=== PATIENT | female | born 1995 | race Caucasian/White ===

== ENCOUNTER 2017-10-26 14:07 | Emergency (ER) | payer BC ==
[~2017-10-26] VITALS: Ht 170.2 cm; Wt 82.0 kg
[2017-10-26 14:13] VITALS: BP 139/81
[2017-10-26] MEDS ORDERED: HYDROcodone/APAP 5/325 TABLET ONE (15:14)
[2017-10-26] MEDS ORDERED: IBUPROFEN 200 MG TABLET ONE (15:15)
[2017-10-26] MEDS ORDERED: HYDROcodone/APAP 5/325 TABLET PO ONE (15:30)
[2017-10-26] MEDS ORDERED: IBUPROFEN 200 MG TABLET PO ONE (15:30)
== END 2017-10-26 16:11 | disposition home or self-care (01) ==
LOC: ED 16:00
DX: S93.421A Sprain of deltoid ligament of right ankle, initial encounter (principal); S93.611A Sprain of tarsal ligament of right foot, initial encounter; S93.621A Sprain of tarsometatarsal ligament of right foot, initial encounter; X50.1XXA Overexertion from prolonged static or awkward postures, initial encounter; Y93.89 Activity, other specified; Y92.410 Unspecified street and highway as the place of occurrence of the external cause; Y99.8 Other external cause status
CPT/HCPCS: 99284